=== PATIENT | male | born 2000 | race Caucasian/White ===

== ENCOUNTER 2023-01-18 17:41 | Emergency (ER) | payer OTHER, SELFPAY ==
[2023-01-18] VITALS (9 sets, daily range): BP systolic 105–123; BP diastolic 59–93; PULSE 75–94; RESP 13–25; TEMP 36.5–36.6; O2SAT 97–100
[2023-01-18] MEDS: Lactated Ringers 1,000 ML 1000 ML IV (18:17)
[2023-01-18 18:18] LABS: Abs Immature Grans 0.05 10^3/uL (0.0-0.06); Absolute Basophil Count 0.07 10^3/uL (0.0-0.2); Absolute Eosinophil Count 0.07 10^3/uL (0.0-0.7); Absolute Lymphocyte Count 1.44 10^3/uL (1.2-3.4); Absolute Monocyte Count 0.62 10^3/uL (0.1-0.8); Absolute Neutrophil Count 9.85 10^3/uL (1.2-6.7); Basophils % 0.6; Eosinophils % 0.6; HCT 48.2 % (40.0-50.0); HGB 16.7 g/dL (13.5-17.5); Immature Grans % 0.4; Lymphocytes % 11.9; MCH 30.5 pg (27.0-33.0); MCHC 34.6 % (32.0-36.0); MCV 88 fL (80-95); MPV 11.4 fL (8.0-11.0); Monocytes % 5.1; Neutrophils % 81.4; Platelet Count 309 10^3/uL (130-400); RBC 5.48 10^6/uL (4.36-5.78); RDW 11.5 % (11.8-14.1)
[2023-01-18 18:33] LABS: ALT 32 U/L (16-63); AST 18 U/L (15-37); Albumin 5.2 g/dL (3.4-5.0); Alkaline Phosphatase 125 U/L (46-116); Anion Gap 8.1 mmol/L (3-11); BUN 13 mg/dL (7-18); CO2 28.9 mmol/L (21.0-32.0); Calcium 9.8 mg/dL (8.5-10.1); Chloride 97 mmol/L (98-107); Glucose 119 mg/dL (74-106); Magnesium 2.3 mg/dL (1.8-2.4); Potassium 3.7 mmol/L (3.5-5.1); Sodium 134 mmol/L (136-145); Total Protein 8.4 g/dL (6.4-8.2)
--- NOTE | 2023-01-18 18:48 | ED.GENADUL_ITS ---
Discharge Plan Disposition Patient Disposition: Home Condition: Stable Discharge Details Clinical Impression: Spasm, Alcohol abuse ED Provider: Callum Oneil Home Meds and New Rx's Prescriptions: New lorazepam 1 mg tablet See Rx Instructions .ROUTE .COMPLEX PRNQty: 10 0RF Rx Instructions: Day 1: 1 mg QID Day 2: 1 mg TID Day 3: 1 mg BID Day 4: 1 mg qD Continued Zyrtec 10 MG capsule 10 mg PO PRN PRN escitalopram oxalate 20 mg tablet 20 mg PO DAILY Discharge Instructions Instructions: Abuse of Alcohol (ED) Additional Instructions: Use lorazepam taper as prescribed to prevent withdrawal. Please contact your primary care physician to arrange follow-up. Please follow-up with [facility]. Return to the ER immediately for any worsening or new concerning symptoms. Referrals: [facility] [Outside] Medical Decision Making [id number]??22-year-old male here with muscle cramping and spasms since just prior to arrival. Patient consumes heavy amounts of alcohol regularly. He notes he was hung over this morning and thinks he may be dehydrated. Concern for acute electrolyte abnormality. Plan to check labs. I will give IV fluid bolus. Patient does acknowledge that his alcohol use is affecting his life and seems somewhat motivated to seek treatment. He notes his mom is helping him seek treatment at [facility]. -- Patient was seen by [facility] and plan was developed for follow-up. Labs reviewed and nondiagnostic. Patient reassessed and feeling much better after IV fluid. Spasms has resolved. Consider alcohol withdrawal. Plan for discharge with outpatient follow-up and plan to seek treatment for alcohol rehabilitation. I will provide benzo taper to prevent wthdrawal. Usual customary discharge instructions reviewed with the patient. Lab Data Lab results reviewed: Yes I reviewed the patient's lab results. Labs: Laboratory Tests Range/Units 01/18/23 01/18/23 18:03 18:03 WBC (4.4-10.8) 10^3/uL 12.10 H RBC (4.36-5.78) 10^6/uL 5.48 Hgb (13.5-17.5) g/dL 16.7 Hct (40.0-50.0) % 48.2 MCV (80-95) fL 88 MCH (27.0-33.0) pg 30.5 MCHC (32.0-36.0) % 34.6 RDW (11.8-14.1) % 11.5 L Plt Count (130-400) 10^3/uL 309 MPV (8.0-11.0) fL 11.4 H Immature Gran % 0.4 Neutrophils % 81.4 Lymphocytes % 11.9 Monocytes % 5.1 Eosinophils % 0.6 Basophils % 0.6 Nucleated RBC % (0.0-0.3) % 0.0 Absolute Neutrophils (1.2-6.7) 10^3/uL 9.85 H Absolute Lymphocytes (1.2-3.4) 10^3/uL 1.44 Absolute Monocytes (0.1-0.8) 10^3/uL 0.62 Absolute Eosinophils (0.0-0.7) 10^3/uL 0.07 Absolute Basophils (0.0-0.2) 10^3/uL 0.07 Sodium (136-145) mmol/L 134 L Potassium (3.5-5.1) mmol/L 3.7 Chloride (98-107) mmol/L 97 L Carbon Dioxide (21.0-32.0) mmol/L 28.9 Anion Gap (3-11) mmol/L 8.1 BUN (7-18) mg/dL 13 Creatinine (0.70-1.30) mg/dL 1.0 Est GFR (CKD-EPI 2020) (mL/min/1.73m2) 110.50 Glucose (74-106) mg/dL 119 H Calcium (8.5-10.1) mg/dL 9.8 Magnesium (1.8-2.4) mg/dL 2.3 Total Bilirubin (0.2-1.0) mg/dL 1.0 AST (15-37) U/L 18 ALT (16-63) U/L 32 Alkaline Phosphatase (46-116) U/L 125 H Total Protein (6.4-8.2) g/dL 8.4 H Albumin (3.4-5.0) g/dL 5.2 H HPI General Mode of arrival: EMS . Date/Time Provider Initiated Documentation: 01/18/23 18:08 . Limitations to Documentation: no limitations . Information obtained by: patient . HPI Narrative: 22-year-old male presents with chief complaint of spasms. Patient notes full body spasms that started just prior to arrival. Patient states he drank a heavy amount of alcohol last night and has been home over today. Spasms are severe. No modifiers. Related Data Home Medications Medication Instructions Recorded Confirmed cetirizine 10 mg capsule (Zyrtec) 10 mg PO PRN PRN 06/16/16 01/18/23 escitalopram oxalate 20 mg tablet 20 mg PO DAILY 01/18/23 01/18/23 lorazepam 1 mg tablet See Rx Instructions .Route 01/18/23 .COMPLEX PRN #10 tabs Previous Rx's Medication Instructions Recorded lorazepam 1 mg tablet See Rx Instructions .Route 01/18/23 .COMPLEX PRN #10 tabs Allergies Allergy/AdvReac Type Severity Reaction Status Date / Time No Known Allergies Allergy Unverified 01/18/23 17:45 General Stated Complaint: [facility] DEXTER: 3 Review of Systems All systems reviewed & are unremarkable except as noted in HPI and below Constitutional Constitutional: Denies fever(s) Cardiovascular Cardiovascular: Denies chest pain Gastrointestinal Gastrointestinal: Denies nausea and Denies vomiting PFSH All Active Problems Spasm (Acute) Alcohol abuse (Chronic) Social History Smoking/Tobacco Use Status: Current every day Tobacco Type: cigarettes Smoking risk assessment performed?: Yes Alcohol Intake: current Alcohol Intake frequency: other Alcohol type: hard liquor Drug use: Never Substance use type: marijuana, hallucinogens and other Details: mushrooms Do you feel safe at home: Yes Exam Const General: cooperative HENMT Mouth: moist mucous membranes Eyes Conjunctivae: normal conjunctivae Sclera: normal sclerae Neck Neck: trachea midline and supple Resp Auscultation: clear to auscultation bilaterally Cardio Rate: regular rate and not tachycardic Rhythm: regular rhythm GI Palpation: soft, not firm, no guarding, no masses, not rigid and nontender Skin General skin exam: no rashes or lesions noted Neuro General: patient alert, patient awake and tone normal Other: Intermittent spasms of his hands Extrem General: no edema Psych Appearance: grossly normal Mental Status: mental status grossly normal Course Vital Signs Vital signs: Vital Signs Temperature 36.5 C 01/18/23 17:45 Pulse 94 H 01/18/23 17:45 Respiratory Rate 20 01/18/23 17:45 Blood Pressure 122/79 01/18/23 17:45 Pulse Oximetry 100 01/18/23 17:45 Temperature 36.5 C 01/18/23 17:45 Temperature Source Oral 01/18/23 17:45 Pulse 94 H 01/18/23 17:45 Respiratory Rate 13 01/18/23 17:49 Respiratory Effort Normal, Accessory Muscle Use 01/18/23 17:49 Respiratory Depth Normal 01/18/23 17:49 Respiratory Pattern Normal 01/18/23 17:49 Blood Pressure 122/79 01/18/23 17:45 Pulse Oximetry 100 01/18/23 17:45 Oxygen Delivery Method Room Air 01/18/23 17:45 Oxygen Flow Rate 0 01/18/23 17:45 Lab/Test Results Lab/Test Results: Laboratory Tests Range/Units 01/18/23 01/18/23 18:03 18:03 WBC (4.4-10.8) 10^3/uL 12.10 H RBC (4.36-5.78) 10^6/uL 5.48 Hgb (13.5-17.5) g/dL 16.7 Hct (40.0-50.0) % 48.2 MCV (80-95) fL 88 MCH (27.0-33.0) pg 30.5 MCHC (32.0-36.0) % 34.6 RDW (11.8-14.1) % 11.5 L Plt Count (130-400) 10^3/uL 309 MPV (8.0-11.0) fL 11.4 H Immature Gran % 0.4 Neutrophils % 81.4 Lymphocytes % 11.9 Monocytes % 5.1 Eosinophils % 0.6 Basophils % 0.6 Nucleated RBC % (0.0-0.3) % 0.0 Absolute Neutrophils (1.2-6.7) 10^3/uL 9.85 H Absolute Lymphocytes (1.2-3.4) 10^3/uL 1.44 Absolute Monocytes (0.1-0.8) 10^3/uL 0.62 Absolute Eosinophils (0.0-0.7) 10^3/uL 0.07 Absolute Basophils (0.0-0.2) 10^3/uL 0.07 Sodium (136-145) mmol/L 134 L Potassium (3.5-5.1) mmol/L 3.7 Chloride (98-107) mmol/L 97 L Carbon Dioxide (21.0-32.0) mmol/L 28.9 Anion Gap (3-11) mmol/L 8.1 BUN (7-18) mg/dL 13 Creatinine (0.70-1.30) mg/dL 1.0 Est GFR (CKD-EPI 2020) (mL/min/1.73m2) 110.50 Glucose (74-106) mg/dL 119 H Calcium (8.5-10.1) mg/dL 9.8 Magnesium (1.8-2.4) mg/dL 2.3 Total Bilirubin (0.2-1.0) mg/dL 1.0 AST (15-37) U/L 18 ALT (16-63) U/L 32 Alkaline Phosphatase (46-116) U/L 125 H Total Protein (6.4-8.2) g/dL 8.4 H Albumin (3.4-5.0) g/dL 5.2 H PAWSS Have you Been Recently Intoxicated or Drunk Within the Last 30 days?: Yes Have you Ever Experienced Previous Episodes of Alcohol Withdrawal?: Yes Have you ever Experienced Withdrawal Seizures?: No Have you ever Experienced Delirium Tremens(DT)s?: Yes Have you ever undergone Alcohol Rehabilitation Treatment (i.e, inpt ot outpatient treatment programs)?: No Have you ever Experienced Blackouts?: Yes Have you ever Combined Alcohol with other Downers within the last 90 days?: No Have you ever Combined Alcohol with any other Substance of Abuse during the last 90 days?: Yes Positive Blood Alcohol level on Presentation? [PCS.BAL]: Unable to Obtain Evidence of Increased Autonomic Activity (i.e. HR>120, tremor, sweating, agitation, nausea)?: Yes Result: 7
--- NOTE | 2023-01-18 19:40 | NUR.NOTE ---
Pt's mother, Gracia, called to facilitate transport home. Per mother, she will be here to pick him up in approx 45 min.
== END 2023-01-18 20:14 | disposition home or self-care (01) ==
PROVIDERS: Emergency Provider Student in an Organized Health Care Education/Training Program
DX: R25.2 Cramp and spasm (principal); F10.10 Alcohol abuse, uncomplicated
CPT/HCPCS: 36415; 36416; 80053; 82962; 96360; 99284; 83735; 85025